=== PATIENT | male | born 1970 | race Caucasian/White ===

== ENCOUNTER 2022-07-30 08:29 | Inpatient (IN) | payer OTHER ==
[~2022-07-30] VITALS: Ht 180.3 cm; Wt 91.6 kg
[2022-07-30] MEDS ORDERED: ACETAMINOPHEN 325 MG TABLET PO ONE (09:15)
[2022-07-30] MEDS ORDERED: MORPHINE SULFATE 2 MG/ML SYRINGE IVP ONE ×2 (09:30→10:00)
[2022-07-30 09:34] LABS: BASOPHILS % (AUTO) 0.5 % (0.0-2.0); EOSINOPHILS % (AUTO) 0.4 % (1.0-6.0); HEMATOCRIT 48.8 % (41-53); HEMOGLOBIN 16.8 g/dL (13.5-17.5); LYMPHOCYTES # (AUTO) 1.5 K/uL (1.0-4.8); LYMPHOCYTES % (AUTO) 15.6 % (22.0-44.0); MEAN CORPUSCULAR HEMOGLOBIN 30.4 pg (26.0-34.0); MEAN CORPUSCULAR HGB CONC 34.5 G/dL (31.0-37.0); MEAN CORPUSCULAR VOLUME 88 fL (80-100); MONOCYTES # (AUTO) 0.5 K/uL (0.1-1.0); MONOCYTES % (AUTO) 5.4 % (2.0-9.0); NEUTROPHILS # (AUTO) 7.6 K/uL (1.8-7.7); NEUTROPHILS % (AUTO) 78.1 % (40.0-70.0); PLATELET COUNT (AUTO) 169 K/uL (150-450); RED BLOOD CELL COUNT(AUTO) 5.54 MIL/uL (4.50-5.90); RED CELL DISTRIBUTION WIDTH 15.3 % (11.5-14.5)
[2022-07-30] MEDS ORDERED: IOHEXOL 350 MG/ML 100 ML VIAL ONE (09:44)
[2022-07-30] MEDS ORDERED: SODIUM CHLORIDE 0.9% 100 ML ONE (09:44)
[2022-07-30 09:48] LABS: ANION GAP 16 mmol/L (8-16); CALCIUM, TOTAL 9.3 mg/dL (8.8-10.5); CARBON DIOXIDE 21 mmol/L (22-29); CHLORIDE 104 mmol/L (98-107); CREATININE 1.12 mg/dL (0.60-1.30); GLOMERULAR FILTR. RATE CALC > 60 mL/min (>60); GLUCOSE,RANDOM 131 mg/dL (70-110); SODIUM SERUM 141 mmol/L (136-145); UREA NITROGEN, BLOOD 9 mg/dL (7-18)
[2022-07-30 09:49] LABS: PROTHROMBIN TIME 10.3 SEC (9.4-11.6)
[2022-07-30 09:54] LABS: ALANINE AMINOTRANSFERASE 88 U/L (12-78); ALKALINE PHOSPHATASE 95 U/L (46-116); ASPARTATE AMINOTRANSFERASE 37 U/L (15-37); B-TYPE NATRIURETIC PEPTIDE 6 pg/mL (0-100); BILIRUBIN,TOTAL 0.8 mg/dL (0.1-1.0); PHOSPHORUS 2.2 mg/dL (2.5-4.9); TOTAL PROTEIN, SERUM 7.9 g/dL (6.4-8.2)
[2022-07-30] MEDS ORDERED: ALTEPLASE 100 MG VIAL IVP ONE (10:30)
[2022-07-30] MEDS ORDERED: ALTEPLASE 100 MG VIAL IV ONE (10:45)
[2022-07-30] MEDS ORDERED: HEPARIN SODIUM,PORCINE 5,000 UNITS/ML VIAL IVP ONE (11:00)
[2022-07-30] MEDS ORDERED: HEPARIN SODIUM,PORCINE 5,000 UNITS/ML VIAL IVP PRN ×2 (11:00)
[2022-07-30] MEDS ORDERED: HEPARIN SODIUM 1000 UNITS/NS 1,000 ML ONE (11:31)
[2022-07-30] MEDS ORDERED: LIDOCAINE/PF 1% 30 ML VIAL ONE (11:31)
[2022-07-30] MEDS ORDERED: SODIUM BICARBONATE 50 MEQ/50 ML VIAL ONE (11:31)
[2022-07-30] MEDS ORDERED: IOHEXOL 300 MG/ML 100 ML VIAL ONE ×2 (11:32→12:15)
[2022-07-30] MEDS ORDERED: FentaNYL CITRATE PF 100 MCG/2 ML VIAL ONE (11:33)
[2022-07-30] MEDS ORDERED: MIDAZOLAM HCL 2 MG/2 ML VIAL ONE (11:34)
[2022-07-30] MEDS ORDERED: EPTIFIBATIDE 2 MG/ML 10 ML VIAL IVP ONE ×2 (11:57→12:00)
[2022-07-30] MEDS ORDERED: TICAGRELOR 90 MG TABLET ONE (11:57)
[2022-07-30] MEDS ORDERED: SODIUM CHLORIDE 0.9% 500 ML IV ONE (12:00)
[2022-07-30] MEDS ORDERED: FentaNYL CITRATE PF 100 MCG/2 ML VIAL IVP ONE ×2 (12:00)
[2022-07-30] MEDS ORDERED: IOHEXOL 300 MG/ML 100 ML VIAL ICOR ONE (12:00)
[2022-07-30] MEDS ORDERED: NITROGLYCERIN/D5W 50 MG/250 ML IV BOTTLE ICOR ONE ×2 (12:00→13:00)
[2022-07-30] MEDS ORDERED: MIDAZOLAM HCL 2 MG/2 ML VIAL IVP ONE ×2 (12:00)
[2022-07-30] MEDS ORDERED: TICAGRELOR 90 MG TABLET PO ONE ×2 (12:00)
[2022-07-30] MEDS ORDERED: HEPARIN SODIUM 1000 UNITS/NS 1,000 ML IARTER ONE (12:00)
[2022-07-30] MEDS ORDERED: LIDOCAINE 1% 30 ML/SOD BICARB 8.4% 4 ML SQ ONE (12:00)
[2022-07-30] MEDS ORDERED: OxyCODONE HCL/ACETAMINOPHEN 5-325 MG TABLET PO PRN (12:15)
[2022-07-30] MEDS ORDERED: ONDANSETRON HCL 4 MG/2 ML VIAL IVP PRN (12:15)
[2022-07-30] MEDS ORDERED: MAGNESIUM HYDROXIDE SUSPENSION 30 ML UDCUP PO PRN (12:15)
[2022-07-30] MEDS ORDERED: ACETAMINOPHEN 325 MG TABLET PO PRN (12:15)
[2022-07-30] MEDS ORDERED: HEPARIN SODIUM,PORCINE 1,000 UNITS/ML 10 ML VIAL IV ONE (13:00)
[2022-07-30 13:10] VITALS: BP 122/94
[2022-07-30 16:00] VITALS: BP 124/93
[2022-07-30] MEDS ORDERED: NITROGLYCERIN 2% (1 GM=INCH) OINTMENT PACKET TP ONE (16:30)
[2022-07-30 18:41] LABS: AMPHET/METH SCREEN,URINE NEGATIVE (NEGATIVE); BARBITURATE SCREEN, URINE NEGATIVE (NEGATIVE); BENZODIAZEPINES SCREEN,URINE POSITIVE (NEGATIVE); CANNABINOID SCREEN,URINE NEGATIVE (NEGATIVE); COCAINE SCREEN,URINE NEGATIVE (NEGATIVE); METHADONE SCREEN, URINE NEGATIVE (NEGATIVE); OPIATE SCREEN,URINE POSITIVE (NEGATIVE); PHENCYCLIDINE SCREEN,URINE NEGATIVE (NEGATIVE)
[2022-07-30 20:00] VITALS: BP 148/92
[2022-07-30] MEDS: DOCUSATE SODIUM 100 MG CAPSULE PO SCH (20:53)
[2022-07-30] MEDS: ATORVASTATIN CALCIUM 40 MG TABLET PO SCH (20:53)
[2022-07-30] MEDS: TICAGRELOR 90 MG TABLET PO SCH (20:53)
[2022-07-30] MEDS: FAMOTIDINE 20 MG TABLET PO SCH (21:19)
[2022-07-31] VITALS: BP 149/88
[2022-07-31 04:00] VITALS: BP 147/78
[2022-07-31] MEDS: DOCUSATE SODIUM 100 MG CAPSULE PO SCH ×2 (08:49→20:25)
[2022-07-31] MEDS: TICAGRELOR 90 MG TABLET PO SCH ×2 (08:49→20:25)
[2022-07-31] MEDS: ASPIRIN 81 MG CHEWABLE TABLET PO SCH (08:49)
[2022-07-31] MEDS: FAMOTIDINE 20 MG TABLET PO SCH ×2 (08:49→20:49)
[2022-07-31 09:27] VITALS: BP 148/91
[2022-07-31] MEDS: METOPROLOL SUCCINATE 25 MG ER TABLET PO SCH (10:13)
[2022-07-31 12:00] VITALS: BP 149/91
[2022-07-31] MEDS ORDERED: METOPROLOL SUCCINATE 25 MG ER TABLET PO SCH (14:00)
[2022-07-31 16:00] VITALS: BP 134/84
[2022-07-31 20:00] VITALS: BP 139/87
[2022-07-31] MEDS: ATORVASTATIN CALCIUM 40 MG TABLET PO SCH (20:25)
[2022-08-01] VITALS: BP 122/76
[2022-08-01 04:00] VITALS: BP 139/82
[2022-08-01 04:33] VITALS: BP 139/82
[2022-08-01 05:33] VITALS: BP 124/77
[2022-08-01 08:00] VITALS: BP 133/69
[2022-08-01] MEDS: TICAGRELOR 90 MG TABLET PO SCH (08:06)
[2022-08-01] MEDS: FAMOTIDINE 20 MG TABLET PO SCH (08:06)
[2022-08-01] MEDS: METOPROLOL SUCCINATE 25 MG ER TABLET PO SCH (08:06)
[2022-08-01] MEDS: ASPIRIN 81 MG CHEWABLE TABLET PO SCH (08:07)
[2022-08-01] MEDS: DOCUSATE SODIUM 100 MG CAPSULE PO SCH (08:07)
[2022-08-01 10:57] LABS: CHOL/HDL RATIO 2.6 (4.2-7.3)
== END 2022-08-01 14:00 | disposition home or self-care (01) | DRG 246 ==
LOC: EMS 08:30 → ICU 11:23
PROVIDERS: ADMIT Internal Medicine; ATTEND Internal Medicine
PROC: 027035Z Dilation of Coronary Artery, One Artery with Two Drug-eluting Intraluminal Devices, Percutaneous Approach (ICD-10-PCS; principal; 2022-07-30)
PROC: 4A023N7 Measurement of Cardiac Sampling and Pressure, Left Heart, Percutaneous Approach (ICD-10-PCS; 2022-07-30)
PROC: B2111ZZ Fluoroscopy of Multiple Coronary Arteries using Low Osmolar Contrast (ICD-10-PCS; 2022-07-30)
DX: I21.09 ST elevation (STEMI) myocardial infarction involving other coronary artery of anterior wall (principal); I46.9 Cardiac arrest, cause unspecified; I49.01 Ventricular fibrillation; I25.10 Atherosclerotic heart disease of native coronary artery without angina pectoris; I10 Essential (primary) hypertension; E66.9 Obesity, unspecified; R73.9 Hyperglycemia, unspecified; F17.290 Nicotine dependence, other tobacco product, uncomplicated; F10.90 Alcohol use, unspecified, uncomplicated; M10.9 Gout, unspecified; Z82.49 Family history of ischemic heart disease and other diseases of the circulatory system; Z79.899 Other long term (current) drug therapy; Z68.28 Body mass index [BMI] 28.0-28.9, adult
CPT/HCPCS: 71045; 71260; 72193; 74160; 80053; 80061; 80307; 82550; 82553; 83735; 83880; 84100; 84484; 85025; 85610; 85730; 87081; 92920; 92928; 93005; 99291; G0378; J1327; J1644; J2250; J2270; J2997; J3010; J3490; J7050; Q9967; 36415-L1; 36415-TC